=== PATIENT | male | born 1960 | race Caucasian/White ===

== ENCOUNTER → 2021-07-17 | Outpatient (CLI) | payer OTHER ==
[~2021-07-17] MED LIST: IBUP800 PO; TESTONE CI200 MG/1 M
== END | disposition home or self-care (01) ==
LOC: LAB SHORT 11:01
DX: L81.4 Other melanin hyperpigmentation (principal)
CPT/HCPCS: 88305

== ENCOUNTER 2024-03-03 01:39 | Day surgery (SDC) | payer OTHER ==
[2024-03-03] MEDS ORDERED: Lidocaine HCl 4% Cream 5 GM ONE (13:46)
== END 2024-03-03 23:00 | disposition home or self-care (01) ==
LOC: WOUND 01:39
DX: I87.312 Chronic venous hypertension (idiopathic) with ulcer of left lower extremity (principal); L97.812 Non-pressure chronic ulcer of other part of right lower leg with fat layer exposed; L97.312 Non-pressure chronic ulcer of right ankle with fat layer exposed; I87.2 Venous insufficiency (chronic) (peripheral); I48.91 Unspecified atrial fibrillation; I73.9 Peripheral vascular disease, unspecified; G47.30 Sleep apnea, unspecified
CPT/HCPCS: A6213; A9270; G0463

== ENCOUNTER 2024-03-10 05:03 | Day surgery (SDC) | payer OTHER | END 2024-03-10 23:00 | disposition home or self-care (01) | LOC: WOUND 05:03 | DX: I87.312 Chronic venous hypertension (idiopathic) with ulcer of left lower extremity (principal); L97.812 Non-pressure chronic ulcer of other part of right lower leg with fat layer exposed; I87.2 Venous insufficiency (chronic) (peripheral); I73.9 Peripheral vascular disease, unspecified | CPT/HCPCS: G0463 ==

== ENCOUNTER 2024-03-15 01:55 | Day surgery (SDC) | payer OTHER ==
[2024-03-15] MEDS ORDERED: Lidocaine HCl 4% Cream 5 GM ONE (08:09)
== END 2024-03-15 23:00 | disposition home or self-care (01) ==
LOC: WOUND 01:55
DX: I87.312 Chronic venous hypertension (idiopathic) with ulcer of left lower extremity (principal); L97.812 Non-pressure chronic ulcer of other part of right lower leg with fat layer exposed; I87.2 Venous insufficiency (chronic) (peripheral); I73.9 Peripheral vascular disease, unspecified
CPT/HCPCS: A9270; G0463

== ENCOUNTER 2024-03-29 01:14 | Day surgery (SDC) | payer OTHER | END 2024-03-29 23:15 | disposition home or self-care (01) | LOC: WOUND 01:14 | DX: I87.312 Chronic venous hypertension (idiopathic) with ulcer of left lower extremity (principal); L97.812 Non-pressure chronic ulcer of other part of right lower leg with fat layer exposed; L97.312 Non-pressure chronic ulcer of right ankle with fat layer exposed; I87.2 Venous insufficiency (chronic) (peripheral); I73.9 Peripheral vascular disease, unspecified | CPT/HCPCS: G0463 ==

== ENCOUNTER 2024-04-06 03:37 | Day surgery (SDC) | payer OTHER ==
[2024-04-06] MEDS ORDERED: Lidocaine HCl 4% Cream 5 GM ONE (15:25)
== END 2024-04-06 23:00 | disposition home or self-care (01) ==
LOC: WOUND 03:37
DX: L97.812 Non-pressure chronic ulcer of other part of right lower leg with fat layer exposed (principal); I87.2 Venous insufficiency (chronic) (peripheral); I73.9 Peripheral vascular disease, unspecified
CPT/HCPCS: A6196; A6213; A9270; G0463

== ENCOUNTER 2024-04-13 03:50 | Day surgery (SDC) | payer OTHER | END 2024-04-13 23:00 | disposition home or self-care (01) | LOC: WOUND 03:50 | DX: I87.312 Chronic venous hypertension (idiopathic) with ulcer of left lower extremity (principal); L97.312 Non-pressure chronic ulcer of right ankle with fat layer exposed; I87.2 Venous insufficiency (chronic) (peripheral); I73.9 Peripheral vascular disease, unspecified | CPT/HCPCS: A6196; G0463 ==

== ENCOUNTER 2024-04-20 05:51 | Day surgery (SDC) | payer OTHER ==
[2024-04-20] MEDS ORDERED: Lidocaine HCl 4% Cream 5 GM ONE (15:28)
== END 2024-04-20 23:00 | disposition home or self-care (01) ==
LOC: WOUND 05:51
DX: L97.812 Non-pressure chronic ulcer of other part of right lower leg with fat layer exposed (principal); I87.2 Venous insufficiency (chronic) (peripheral); I73.9 Peripheral vascular disease, unspecified
CPT/HCPCS: A6196; A9270

== ENCOUNTER 2024-05-02 03:32 | Day surgery (SDC) | payer OTHER | END 2024-05-02 23:00 | disposition home or self-care (01) | LOC: WOUND | DX: I87.312 Chronic venous hypertension (idiopathic) with ulcer of left lower extremity (principal); L97.312 Non-pressure chronic ulcer of right ankle with fat layer exposed; I87.2 Venous insufficiency (chronic) (peripheral); I73.9 Peripheral vascular disease, unspecified | CPT/HCPCS: G0463 ==

== ENCOUNTER 2024-05-11 01:25 | Day surgery (SDC) | payer OTHER | END 2024-05-11 23:00 | disposition home or self-care (01) | LOC: WOUND 01:25 | DX: I87.311 Chronic venous hypertension (idiopathic) with ulcer of right lower extremity (principal); L97.812 Non-pressure chronic ulcer of other part of right lower leg with fat layer exposed; I87.2 Venous insufficiency (chronic) (peripheral); I73.9 Peripheral vascular disease, unspecified | CPT/HCPCS: G0463 ==

== ENCOUNTER 2024-05-18 06:38 | Day surgery (SDC) | payer OTHER | END 2024-05-18 22:51 | disposition home or self-care (01) | LOC: WOUND 06:38 | DX: L97.812 Non-pressure chronic ulcer of other part of right lower leg with fat layer exposed (principal); I87.2 Venous insufficiency (chronic) (peripheral); I73.9 Peripheral vascular disease, unspecified | CPT/HCPCS: G0463 ==

== ENCOUNTER 2024-06-01 03:21 | Day surgery (SDC) | payer OTHER ==
[2024-06-01] MEDS ORDERED: Lidocaine HCl 4% Cream 5 GM ONE (15:13)
== END 2024-06-01 23:00 | disposition home or self-care (01) ==
LOC: WOUND 03:21
DX: L97.312 Non-pressure chronic ulcer of right ankle with fat layer exposed (principal); I87.2 Venous insufficiency (chronic) (peripheral); I73.9 Peripheral vascular disease, unspecified
CPT/HCPCS: A9270; G0463

== ENCOUNTER 2024-06-08 05:27 | Day surgery (SDC) | payer OTHER | END 2024-06-08 23:00 | disposition home or self-care (01) | LOC: WOUND 05:27 | DX: L97.812 Non-pressure chronic ulcer of other part of right lower leg with fat layer exposed (principal); I87.2 Venous insufficiency (chronic) (peripheral); I73.9 Peripheral vascular disease, unspecified | CPT/HCPCS: G0463 ==